=== PATIENT | male | born 1940 | race Caucasian/White ===

== ENCOUNTER 2018-10-11 10:40 | Emergency (ER) | payer MEDICARE ==
[~2018-10-11] VITALS: Ht 185.4 cm; Wt 118.1 kg
[2018-10-11] MEDS ORDERED: LOSA50TA14 PO (11:39)
[2018-10-11] MEDS ORDERED: METF1000 PO (11:42)
[2018-10-11] MEDS ORDERED: SIMV20TA3 PO (11:42)
--- NOTE | 2018-10-11 12:10 | NUR ---
DR. NAVARRO AT BEDSIDE.
[2018-10-11 12:42] LABS: BASOPHILS # (AUTO) 0.13 x10^3/uL (0-0.1); BASOPHILS % (AUTO) 2 % (0-1); EOSINOPHILS % (AUTO) 2 % (1-7); LYMPHOCYTES # (AUTO) 2.42 x10^3/uL (1-3.4); LYMPHOCYTES % (AUTO) 27 % (22-44); MD NO; MEAN CORPUSCULAR HEMOGLOBIN 31.9 pg (27.5-34.5); MEAN CORPUSCULAR HGB CONC 34.6 g/dL (33.2-36.2); MEAN CORPUSCULAR VOLUME 92.1 fL (81-97); MEAN PLATELET VOLUME 8.9 fL (7.4-10.4); MONOCYTES # (AUTO) 0.86 x10^3/uL (0.2-0.8); MONOCYTES % (AUTO) 10 % (2-9); NEUTROPHILS # (AUTO) 5.32 x10^3/uL (1.8-6.8); NEUTROPHILS % (AUTO) 60 % (42-75); PLATELET COUNT 252 x10^3/uL (130-400); RED BLOOD COUNT 4.45 x10^6/uL (4.38-5.82); RED CELL DISTRIBUTION WIDTH 13.6 % (9.4-14.8)
[2018-10-11 12:51] LABS: ALANINE AMINOTRANSFERASE 35 U/L (12-78); ALBUMIN 3.5 g/dL (3.4-5.0); ANION GAP 6 mmol/L (5-15); CALCIUM 8.5 mg/dL (8.5-10.1); CHLORIDE 107 mmol/L (98-107); CREATININE 1.22 mg/dL (0.7-1.3)
[2018-10-11 12:55] LABS: ALKALINE PHOSPHATASE 59 U/L (45-117); TROPONIN I < 0.015 ng/mL (0.000-0.045)
[2018-10-11] MEDS ORDERED: LISINOPRIL 20 MG TABLET ONE (13:08)
[2018-10-11] MEDS ORDERED: LISINOPRIL 20 MG TABLET PO ONE (13:30)
[2018-10-11 13:56] VITALS: BP 164/68
== END 2018-10-11 14:49 | disposition home or self-care (01) ==
LOC: ED 14:06
DX: I10 Essential (primary) hypertension (principal); E78.00 Pure hypercholesterolemia, unspecified; E11.9 Type 2 diabetes mellitus without complications
CPT/HCPCS: 36415; 71045; 80053; 84484; 85025; 93005; 99284